=== PATIENT | male | born 1985 | race Caucasian/White ===

== ENCOUNTER 2021-06-10 07:54 | Emergency (ER) | payer OTHER | END 2021-06-10 11:38 | disposition home or self-care (01) | LOC: FER 07:54 | DX: U07.1 COVID-19 (principal) ==

== ENCOUNTER 2021-06-15 10:30 | Inpatient (IN) | payer OTHER ==
[~2021-06-15] VITALS: Ht 185.4 cm; Wt 75.0 kg
[~2021-06-15 10:30] MED LIST: MUCINEX D TABL1 EACH PO; NAPROXEN500 MG PO; ONDANSETRON ODT4 MG PO; VENTOLIN HFA18 GM INH
[2021-06-15 11:48] LABS: BASOPHIL 0.4 % (0-2); EOSINOPHIL 0 % (0-5); HCT 44.2 % (42.0-52.0); HGB 14.4 g/dl (13.2-18.0); MCH 27.9 pg (25.0-31.0); MCHC 32.6 g/dL (32.0-36.0); MCV 85.5 fL (78.0-100.0); MONOCYTE 6.7 % (0-12); MPV 9.8 fL (6.0-9.5); NEUTROPHIL 74.7 % (41-80); NRBC 0; PLT 307 K/uL (150-400); RBC 5.17 M/uL (4.70-6.00); RDW 12.5 % (11.5-14.0); WBC 4.7 K/uL (4.0-10.5)
[2021-06-15 11:50] LABS: LYMPHOCYTE 13.7 % (15-48)
[2021-06-15 12:14] LABS: BUN/CREAT RATIO (CALC) 16.7 RATIO; CREATININE 0.72 mg/dL (0.67-1.17); POTASSIUM 4.1 mmol/L (3.5-5.1)
[2021-06-16 06:16] LABS: BASOPHIL 0.4 % (0-2); EOSINOPHIL 0 % (0-5); HCT 43.3 % (42.0-52.0); HGB 14.3 g/dl (13.2-18.0); LYMPHOCYTE 14.3 % (15-48); MCH 28.5 pg (25.0-31.0); MCV 86.3 fL (78.0-100.0); MONOCYTE 9.3 % (0-12); MPV 9.8 fL (6.0-9.5); NEUTROPHIL 72.9 % (41-80); NRBC 0; PLT 345 K/uL (150-400); RBC 5.02 M/uL (4.70-6.00); RDW 12.6 % (11.5-14.0); WBC 4.5 K/uL (4.0-10.5)
[2021-06-16 06:36] LABS: ALBUMIN 2.4 g/dL (3.4-5.0); BILIRUBIN - TOTAL 0.5 mg/dL (0.2-1.0); CREATININE 0.63 mg/dL (0.67-1.17); GLOBULIN (CALCULATION) 4.4 g/dL; TOTAL PROTEIN 6.8 g/dL (6.4-8.2)
[2021-06-17 06:50] LABS: BASOPHIL 0.5 % (0-2); EOSINOPHIL 0 % (0-5); HCT 41.8 % (42.0-52.0); HGB 13.6 g/dl (13.2-18.0); LYMPHOCYTE 13.7 % (15-48); MCH 27.9 pg (25.0-31.0); MCHC 32.5 g/dL (32.0-36.0); MCV 85.8 fL (78.0-100.0); MONOCYTE 9.4 % (0-12); MPV 10.1 fL (6.0-9.5); NEUTROPHIL 71.9 % (41-80); NRBC 0; PLT 473 K/uL (150-400); RBC 4.87 M/uL (4.70-6.00); RDW 12.6 % (11.5-14.0)
[2021-06-17 06:54] LABS: WBC 9.7 K/uL (4.0-10.5)
[2021-06-17 07:47] LABS: ALBUMIN 2.5 g/dL (3.4-5.0); BILIRUBIN - TOTAL 0.5 mg/dL (0.2-1.0); BUN/CREAT RATIO (CALC) 30.4 RATIO; CREATININE 0.69 mg/dL (0.67-1.17); GLOBULIN (CALCULATION) 4.1 g/dL; POTASSIUM 4.4 mmol/L (3.5-5.1); TOTAL PROTEIN 6.6 g/dL (6.4-8.2)
[2021-06-17] MEDS ORDERED: ATROVENT HFA12.9 GM INH (15:44)
[2021-06-17] MEDS ORDERED: PROVENTIL INH (15:44)
[2021-06-17] MEDS ORDERED: DEXAMETHASONE 2M2 MG PO (15:44)
== END 2021-06-17 18:20 | disposition home or self-care (01) | DRG 177 ==
LOC: FER 10:30 → FMS 13:24
PROVIDERS: Emergency Medicine; ADMIT Family Medicine
PROC: 8E0ZXY6 Isolation (ICD-10-PCS; principal; 2021-06-15)
PROC: XW033E5 Introduction of Remdesivir Anti-infective into Peripheral Vein, Percutaneous Approach, New Technology Group 5 (ICD-10-PCS; 2021-06-15)
DX: U07.1 COVID-19 (principal); J12.82 Pneumonia due to coronavirus disease 2019; J96.01 Acute respiratory failure with hypoxia; R73.9 Hyperglycemia, unspecified; G47.00 Insomnia, unspecified; Z79.899 Other long term (current) drug therapy
CPT/HCPCS: 36415; 36600; 71045; 80048; 80053; 82728; 82803; 83036; 85025; 94010; 94640; 94760; C9399; J1100; J1650; J7050; J8540; U0002